=== PATIENT | male | born 1965 | race American Indian/Alaskan Native ===

== ENCOUNTER 2019-04-08 21:25 | Emergency (ER) | payer SELFPAY ==
--- NOTE | 2019-04-08 22:13 | Emergency Department Report ---
Blank Doc - Documentation Documentation: 53y/o mechanical fall in garage earlier today hitting middle finger on floor w hile bracing. now finger swollen and tender. Plan xray
--- NOTE | 2019-04-08 23:28 | XRay Report ---
PROCEDURE: XR HAND 3+V RT TECHNIQUE: 3 views of the right hand obtained. HISTORY: pain to 3rd digit /trauma COMPARISONS: None FINDINGS: No acute fracture or dislocation. Joint spaces are grossly maintained. IMPRESSION: No acute fracture or dislocation. Joint spaces are grossly maintained. . This document is electronically signed by Alcides Murillo MD., April 08 2019 11:26:29 PM ET
[2019-04-09] MEDS ORDERED: TORADOL PO ONE (02:09)
--- NOTE | 2019-04-09 02:13 | Emergency Department Report ---
ED Upper Extremity Inj HPI - General Chief Complaint: Extremity Injury, Upper Stated Complaint: RIGHT MIDDLE FINGER PAIN Time Seen by Provider: 04/09/19 01:42 Source: patient Mode of arrival: Ambulatory Limitations: No Limitations - History of Present Illness Initial Comments: Pt is a 53 yo male who presents to the ED with c/o right middle finger pain that began at 3 PM. He states that he tripped over something and fell and felt his right finger bend inwards. he denies any numbness or weakness. he denies any prior injury. he is able to move the digit. PMHx DM. no allergies to meds. - Related Data Previous Rx's Medication Instructions Recorded Last Taken Type Ibuprofen [Motrin 800 MG tab] 800 mg PO Q8HR PRN #14 tablet 04/09/19 Unknown Rx Allergies Allergy/AdvReac Type Severity Reaction Status Date / Time No Known Allergies Allergy Unverified 04/08/19 22:13 ED Review of Systems ROS: Stated complaint: RIGHT MIDDLE FINGER PAIN Other details as noted in HPI Comment: All other systems reviewed and negative ED Past Medical Hx - Past Medical History Previous Medical History?: Yes Hx Diabetes: Yes - Surgical History Past Surgical History?: Yes Additional Surgical History: Hernia - Social History Smoking Status: Never Smoker Substance Use Type: None - Medications Home Medications: Home Medications Medication Instructions Recorded Confirmed Last Taken Type Ibuprofen [Motrin 800 MG tab] 800 mg PO Q8HR PRN #14 tablet 04/09/19 Unknown Rx ED Physical Exam - General Limitations: No Limitations General appearance: alert, in no apparent distress - Head Head exam: Present: atraumatic, normocephalic - Eye Eye exam: Present: normal appearance, PERRL - ENT ENT exam: Present: mucous membranes moist - Respiratory Respiratory exam: Absent: respiratory distress - Extremities Exam Extremities exam: Present: other (pt has mild TTP over the right middle finger PIP joint, pt has FROM of the right middle finger with some discomfort upon flexion, neurovascularly intact) - Neurological Exam Neurological exam: Present: alert, oriented X3 - Psychiatric Psychiatric exam: Present: normal affect, normal mood - Skin Skin exam: Present: warm, dry, intact ED Course Vital Signs 04/08/19 04/09/19 04/09/19 21:30 02:52 02:57 Temperature 98.3 F 98.5 F Pulse Rate 86 63 Respiratory 18 20 20 Rate Blood Pressure 144/89 Blood Pressure 125/83 [Left] O2 Sat by Pulse 99 98 Oximetry 04/09/19 04/09/19 03:20 03:45 Temperature Pulse Rate Respiratory 20 20 Rate Blood Pressure Blood Pressure [Left] O2 Sat by Pulse Oximetry ED Medical Decision Making - Radiology Data Radiology results: report reviewed PROCEDURE: XR HAND 3+V RT TECHNIQUE: 3 views of the right hand obtained. HISTORY: pain to 3rd digit /trauma COMPARISONS: None FINDINGS: No acute fracture or dislocation. Joint spaces are grossly maintained. IMPRESSION: No acute fracture or dislocation. Joint spaces are grossly maintained. . This document is electronically signed by Arcadio Murillo MD., April 08 2019 11:26:29 PM ET Transcribed By: QF Dictated By: ARCADIO MURILLO Electronically Authenticated By: ARCADIO MURILLO Signed Date/Time: 04/08/19 9089 - Medical Decision Making Pt is a 53 yo male who presents to the ED with c/o right middle finger pain that began at 3 PM. He states that he tripped over something and fell and felt his right finger bend inwards. he denies any numbness or weakness. he denies any prior injury. he is able to move the digit. PMHx DM. no allergies to meds. on exam pt has mild TTP over the right middle finger PIP joint, pt has FROM of the right middle finger with some discomfort upon flexion, neurovascularly intact, no edema, no erythema. pt given pain medication while in the ED. pt given finger splint. pt sent home with anti-inflammatory. advised to take as prescribed as needed. discussed to please follow up with Dr. Mccabe, orthopedic doctor in the next 2-3 days. May ice the area for 15 minutes at a time. return to the emergency room for any new or worsening symptoms. - Differential Diagnosis strain, sprain, fx, dislocation Critical care attestation.: If time is entered above; I have spent that time in minutes in the direct care of this critically ill patient, excluding procedure time. ED Disposition Clinical Impression: Injury of right middle finger Qualifiers: Encounter type: initial encounter Qualified Code(s): S69.91XA - Unspecified injury of right wrist, hand and finger(s), initial encounter Disposition: DC-01 TO HOME OR SELFCARE Is pt being admited?: No Does the pt Need Aspirin: No Condition: Stable Instructions: Finger Sprain (ED) Additional Instructions: Please follow up with Dr. Mccabe, orthopedic doctor in the next 2-3 days. May ice the area for 15 minutes at a time. take medication as needed. return to the emergency room for any new or worsening symptoms. Prescriptions: Ibuprofen [Motrin 800 MG tab] 800 mg PO Q8HR PRN #14 tablet PRN Reason: Pain, Moderate (4-6) Referrals: PRIMARY CAREMD [Primary Care Provider] - 2-3 Days CARLOZ MCCABE MD [Staff Physician] - 2-3 Days Time of Disposition: 02:15 Print Language: PORTUGUESE
[2019-04-09 02:53] VITALS: BP 125/83
[2019-04-09] MEDS ORDERED: ULTRAM PO ONE (02:58)
== END 2019-04-09 03:47 | disposition home or self-care (01) ==
LOC: ED 21:25
DX: S69.91XA Unspecified injury of right wrist, hand and finger(s), initial encounter (principal); E11.9 Type 2 diabetes mellitus without complications; W01.0XXA Fall on same level from slipping, tripping and stumbling without subsequent striking against object, initial encounter; Y93.89 Activity, other specified; Y92.89 Other specified places as the place of occurrence of the external cause; Y99.8 Other external cause status